=== PATIENT | female | born 1995 | race Caucasian/White ===

== ENCOUNTER → 2016-11-27 | Outpatient (CLI) | payer OTHER ==
[~2016-11-27] MED LIST: NORCO 5-325 TA1 EACH PO
== END ==
LOC: US 15:20
DX: I82.611 Acute embolism and thrombosis of superficial veins of right upper extremity (principal)
CPT/HCPCS: 93971

== ENCOUNTER → 2022-04-11 | Outpatient (CLI) | payer OTHER ==
[~2022-04-11] MED LIST changes: +IBUPROFEN600 MG PO; +NORCO 7.5-3251 EACH PO
== END ==
LOC: MAMO 04-10 14:00 → US 10:00 → MAMO 11:00
DX: N63.20 Unspecified lump in the left breast, unspecified quadrant (principal)
CPT/HCPCS: 76641-LT